=== PATIENT | female | born 2000 | race African-American/Black ===

== ENCOUNTER 2024-06-11 20:45 | Inpatient (IN) | payer SELFPAY ==
[~2024-06-11] VITALS: Ht 167.6 cm; Wt 62.1 kg
[2024-06-11 23:12] LABS: PH,URINE DRUG SCREEN 6.5 (5.0-8.0)
[2024-06-11 23:17] LABS: BASOPHILS % (AUTO) 0.2 % (0.0-2.0); EOSINOPHILS % (AUTO) 1.4 % (1.0-6.0); HEMATOCRIT 34.4 % (36-46); LYMPHOCYTES # (AUTO) 2.9 K/uL (1.0-4.8); LYMPHOCYTES % (AUTO) 29.8 % (22.0-44.0); MEAN CORPUSCULAR HEMOGLOBIN 25.8 pg (26.0-34.0); MEAN CORPUSCULAR VOLUME 81 fL (80-100); MONOCYTES # (AUTO) 0.7 K/uL (0.1-1.0); MONOCYTES % (AUTO) 7.6 % (2.0-9.0); NEUTROPHILS # (AUTO) 5.9 K/uL (1.8-7.7); PLATELET COUNT (AUTO) 172 K/uL (150-450); RED BLOOD CELL COUNT(AUTO) 4.27 MIL/uL (4.00-5.20); WHITE BLOOD COUNT (AUTO) 9.7 K/uL (4.5-11.0)
[2024-06-11 23:21] LABS: ALCOHOL, URINE DRUG SCREEN NEGATIVE (NEGATIVE); AMPHET/METH SCREEN,URINE NEGATIVE (NEGATIVE); BARBITURATE SCREEN, URINE NEGATIVE (NEGATIVE); BENZODIAZEPINES SCREEN,URINE NEGATIVE (NEGATIVE); CANNABINOID SCREEN,URINE NEGATIVE (NEGATIVE); COCAINE SCREEN,URINE NEGATIVE (NEGATIVE); METHADONE SCREEN, URINE NEGATIVE (NEGATIVE); OPIATE SCREEN,URINE NEGATIVE (NEGATIVE); PHENCYCLIDINE SCREEN,URINE NEGATIVE (NEGATIVE)
[2024-06-11 23:23] LABS: ANION GAP 14 mmol/L (8-16); CARBON DIOXIDE 23 mmol/L (22-29); CHLORIDE 101 mmol/L (98-107); CREATININE 0.68 mg/dL (0.60-1.30); GLOMERULAR FILTR. RATE CALC > 60 mL/min (>60); GLUCOSE,RANDOM 86 mg/dL (70-110); POTASSIUM 3.6 mmol/L (3.5-5.1); SALICYLATE 0.2 mg/dL (2.8-20.0); SODIUM SERUM 138 mmol/L (136-145); UREA NITROGEN, BLOOD 16 mg/dL (7-18)
[2024-06-11 23:24] LABS: ALCOHOL, BLOOD (SERUM) < 3 mg/dL (0-10)
[2024-06-11 23:27] LABS: COVID AG,FIA SOURCE NASAL SWAB; SARS-COV2 (COVID) ANTIGEN,FIA Negative (Negative)
[2024-06-11 23:35] LABS: ACETAMINOPHEN < 2 mcg/mL (10-30)
[2024-06-12 04:22] VITALS: BP 134/80; PULSE 86; RESP 18; TEMP 97.4; O2SAT 99
[2024-06-12] MEDS ORDERED: LORazepam 2 MG TABLET PO PRN (05:00)
[2024-06-12] MEDS ORDERED: ZOLPIDEM TARTRATE 10 MG TABLET PO PRN (05:00)
[2024-06-12] MEDS ORDERED: HALOPERIDOL 5 MG TABLET PO PRN (05:00)
[2024-06-12 08:25] VITALS: BP 117/76; PULSE 96; RESP 17; TEMP 97.7; O2SAT 99
[2024-06-12] MEDS ORDERED: PETROLATUM,WHITE 28 GM JELLY TP PRN (12:45)
[2024-06-12] MEDS ORDERED: ACETAMINOPHEN 325 MG TABLET PO PRN (12:45)
[2024-06-12] MEDS ORDERED: MAGNESIUM HYDROXIDE SUSPENSION 30 ML UDCUP PO PRN (12:45)
[2024-06-12] MEDS ORDERED: ONDANSETRON 4 MG TABLET PO PRN (12:45)
[2024-06-12] MEDS ORDERED: IBUPROFEN 400 MG TABLET PO PRN (12:45)
[2024-06-12] MEDS ORDERED: NICOTINE 14 MG/24 HOUR PATCH TD PRN (12:45)
[2024-06-12] MEDS ORDERED: DOCUSATE SODIUM 100 MG CAPSULE PO PRN (12:45)
[2024-06-12] MEDS ORDERED: CloNIDine HCL 0.1 MG TABLET PO PRN (12:45)
[2024-06-12] MEDS ORDERED: LOPERAMIDE HCL 2 MG CAPSULE PO PRN (12:45)
[2024-06-12] MEDS ORDERED: GuaiFENesin/D-METHORPHAN [SUGAR-FREE] 200-20MG/10 ML SYRUP UDCUP PO PRN (12:45)
[2024-06-12] MEDS ORDERED: MAG HYDROX/ALUMINUM HYD/SIMETH ES 30 ML SUSPENSION UDCUP PO PRN (12:45)
[2024-06-12] MEDS ORDERED: ALBUTEROL SULFATE HFA 90 MCG/PUFF 8 GM INHALER IH PRN (12:45)
[2024-06-12] MEDS: INFLUENZA VIRUS VACCINE TVS (6MO+) 2024-25/PF 45 MCG/0.5 ML SYRINGE IM. ONE (14:36)
[2024-06-12 20:06] VITALS: BP 120/70; PULSE 82; RESP 18; TEMP 98.2; O2SAT 97
[2024-06-13 08:26] VITALS: BP 108/61; PULSE 64; RESP 18; TEMP 97.8; O2SAT 96
[2024-06-13 08:56] LABS: APPEARANCE,URINE TURBID (CLEAR); BILIRUBIN,URINE NEGATIVE (NEGATIVE); COLOR,URINE LIGHT ORANGE (YELLOW); GLUCOSE, URINE (UA) NEGATIVE (NEGATIVE); KETONES,URINE NEGATIVE (NEGATIVE); LEUKOCYTE ESTERASE ,URINE NEGATIVE (NEGATIVE); NITRATE,URINE NEGATIVE (NEGATIVE); OCCULT BLOOD,URINE NEGATIVE (NEGATIVE); PROTEIN,URINE TRACE mg/dL (NEGATIVE); SPECIFIC GRAVITIY, URINE 1.032 (1.003-1.030); UROBILINOGEN,URINE <=1.0 mg/dL (<=1.0)
[2024-06-13 09:02] LABS: ALCOHOL, URINE DRUG SCREEN NEGATIVE (NEGATIVE); AMPHET/METH SCREEN,URINE NEGATIVE (NEGATIVE); BARBITURATE SCREEN, URINE NEGATIVE (NEGATIVE); BENZODIAZEPINES SCREEN,URINE NEGATIVE (NEGATIVE); CANNABINOID SCREEN,URINE NEGATIVE (NEGATIVE); COCAINE SCREEN,URINE NEGATIVE (NEGATIVE); METHADONE SCREEN, URINE NEGATIVE (NEGATIVE); OPIATE SCREEN,URINE NEGATIVE (NEGATIVE); PHENCYCLIDINE SCREEN,URINE NEGATIVE (NEGATIVE)
[2024-06-13 09:16] LABS: HEMOGLOBIN A1C 5.2 % (3.8-5.6)
[2024-06-13 09:28] LABS: THYROID STIMULATING HORMONE 0.59 uIU/mL (0.36-3.74)
[2024-06-13 20:02] VITALS: BP 113/62; PULSE 97; RESP 18; TEMP 97.8; O2SAT 100
[2024-06-14 08:23] VITALS: BP 128/89; PULSE 100; RESP 17; TEMP 97.3; O2SAT 100
== END 2024-06-14 14:00 | disposition home or self-care (01) | DRG 885 ==
LOC: EMS 20:45 → B2S 06-12 00:12
PROVIDERS: ADMIT Psychiatry & Neurology Psychiatry; ATTEND Psychiatry & Neurology Psychiatry
PROC: GZHZZZZ Group Psychotherapy (ICD-10-PCS; principal; 2024-06-12)
PROC: GZ51ZZZ Individual Psychotherapy, Behavioral (ICD-10-PCS; 2024-06-12)
DX: F33.2 Major depressive disorder, recurrent severe without psychotic features (principal); R45.851 Suicidal ideations; E66.01 Morbid (severe) obesity due to excess calories; Z20.822 Contact with and (suspected) exposure to COVID-19; G47.00 Insomnia, unspecified; Z68.22 Body mass index [BMI] 22.0-22.9, adult
CPT/HCPCS: 80048; 80061; 80307; 81003; 83036; 84443; 85025; 99285; G0480; G0481